=== PATIENT | female | born 1955 | race Caucasian/White ===

== ENCOUNTER 2023-10-26 11:16 | Outpatient (CLI) | payer MEDICARE | END 2023-10-26 11:17 | disposition home or self-care (01) | LOC: MRI 11:16 | PROVIDERS: ATTEND Psychiatry & Neurology Neurology | DX: R25.1 Tremor, unspecified (principal) | CPT/HCPCS: 70551 ==

== ENCOUNTER 2023-11-19 13:04 | Outpatient (CLI) | payer MEDICARE | END 2023-11-19 13:05 | disposition home or self-care (01) | LOC: MRI 13:04 | PROVIDERS: ATTEND Psychiatry & Neurology Neurology | DX: M48.02 Spinal stenosis, cervical region (principal); M47.812 Spondylosis without myelopathy or radiculopathy, cervical region | CPT/HCPCS: 72141 ==